=== PATIENT | female | born 1965 | race African-American/Black ===

== ENCOUNTER 2019-06-27 16:38 | Emergency (ER) | payer OTHER ==
[~2019-06-27] VITALS: Ht 149.9 cm; Wt 89.8 kg
[2019-06-27 17:57] LABS: HEMATOCRIT 36.6 % (37.0-47.0); MCH 27.5 pg (26.0-34.0); MCHC 32.7 g/dL (28.0-37.0); MCV 84.2 fL (80.0-100.0); RBC 4.34 mil/uL (4.20-5.00); RDW 12.9 % (10.5-14.5); WBC 8.2 thou/uL (4.0-11.0)
[2019-06-27 18:13] LABS: CALCIUM 9.3 mg/dL (8.5-10.1); CREATININE 0.7 mg/dL (0.6-1.0); POTASSIUM 4.2 mmol/L (3.5-5.1)
[2019-06-27] MEDS ORDERED: NORCO 5-325 TA1 EAC1 PO (18:19)
[2019-06-27] MEDS ORDERED: CYCLOBENZAPRINE5 MG PO (18:19)
[2019-06-27 19:08] VITALS: BP 130/68
== END 2019-06-27 19:13 | disposition home or self-care (01) ==
LOC: ER 16:38
PROVIDERS: Physician Assistant
DX: M25.512 Pain in left shoulder (principal); M54.6 Pain in thoracic spine; M54.5 Low back pain; R10.32 Left lower quadrant pain; F41.9 Anxiety disorder, unspecified; Z88.8 Allergy status to other drugs, medicaments and biological substances